=== PATIENT | male | born 1930 | race Caucasian/White ===

== ENCOUNTER 2016-10-23 14:24 | Day surgery (SDC) | payer MEDICARE, BC ==
[~2016-10-23 14:24] MED LIST: ATENOLOL50 M1 PO; ATORVASTATIN CA40 M1 PO; CLARITIN10 M8 PO; CO Q-10100 M2 PO; COUMADIN2.5 M1 PO; COUMADIN5 M2 PO; FUROSEMIDE40 M2 PO; IMURAN50 M1 PO; ISOSORBIDE MONO30 M4 PO; LORTAB 5-325 M1 EAC1 PO; NORVASC5 M2 PO; PLAVIX75 M1 PO; PROBIOTIC1 EA10 PO; SENSIPAR30 M1 PO; TENORMIN25 M1 PO; VITAMIN D2000 UNIT PO; WARFARIN SODIUM3 M2 PO; XALATAN2.5 M1 EACH EYE; [UNRECOGNIZED DRUG - OTHER]
== END 2016-10-23 17:15 ==
LOC: RADSP 14:24 → SHSB 14:26
PROC: B51WYZZ Fluoroscopy of Dialysis Shunt/Fistula using Other Contrast (ICD-10-PCS; principal; 2016-10-23)
PROC: 05763DZ Dilation of Left Subclavian Vein with Intraluminal Device, Percutaneous Approach (ICD-10-PCS; 2016-10-23)
PROC: 05783ZZ Dilation of Left Axillary Vein, Percutaneous Approach (ICD-10-PCS; 2016-10-23)
DX: T82.858A Stenosis of other vascular prosthetic devices, implants and grafts, initial encounter (principal); I82.B12 Acute embolism and thrombosis of left subclavian vein; I12.0 Hypertensive chronic kidney disease with stage 5 chronic kidney disease or end stage renal disease; N18.6 End stage renal disease; Z79.01 Long term (current) use of anticoagulants; Z79.02 Long term (current) use of antithrombotics/antiplatelets; Z79.899 Other long term (current) drug therapy; Z91.048 Other nonmedicinal substance allergy status; Z98.890 Other specified postprocedural states; Z99.2 Dependence on renal dialysis
CPT/HCPCS: C1725; C1769; C1876; C1887; J0690; J2250; J3010; Q9967